=== PATIENT | female | born 1960 | race Caucasian/White ===

== ENCOUNTER 2019-12-05 10:02 | Outpatient (CLI) | payer BC | END 2019-12-05 23:59 | disposition home or self-care (01) | LOC: WOUND 10:02 | PROVIDERS: ATTEND Internal Medicine | DX: I87.331 Chronic venous hypertension (idiopathic) with ulcer and inflammation of right lower extremity (principal); L97.311 Non-pressure chronic ulcer of right ankle limited to breakdown of skin; L97.212 Non-pressure chronic ulcer of right calf with fat layer exposed; Z87.891 Personal history of nicotine dependence; Z88.0 Allergy status to penicillin | CPT/HCPCS: 97597; 97598; 99205 ==

== ENCOUNTER → 2019-12-10 | Outpatient (CLI) | payer BC | END | disposition home or self-care (01) | LOC: WOUND 10:15 | PROVIDERS: ATTEND Internal Medicine | DX: I87.311 Chronic venous hypertension (idiopathic) with ulcer of right lower extremity (principal); L97.212 Non-pressure chronic ulcer of right calf with fat layer exposed; L97.311 Non-pressure chronic ulcer of right ankle limited to breakdown of skin; Z87.891 Personal history of nicotine dependence | CPT/HCPCS: 99214 ==

== ENCOUNTER → 2019-12-21 | Outpatient (CLI) | payer BC | END | disposition home or self-care (01) | LOC: CVU 12:48 | PROVIDERS: ATTEND Internal Medicine | DX: I83.93 Asymptomatic varicose veins of bilateral lower extremities (principal); I82.463 Acute embolism and thrombosis of calf muscular vein, bilateral; L97.311 Non-pressure chronic ulcer of right ankle limited to breakdown of skin | CPT/HCPCS: 93922; 93925; 93970 ==

== ENCOUNTER → 2019-12-24 | Outpatient (CLI) | payer BC | END | disposition home or self-care (01) | LOC: WOUND 09:53 | PROVIDERS: ATTEND Internal Medicine | DX: I87.331 Chronic venous hypertension (idiopathic) with ulcer and inflammation of right lower extremity (principal); L97.311 Non-pressure chronic ulcer of right ankle limited to breakdown of skin; L97.212 Non-pressure chronic ulcer of right calf with fat layer exposed; Z87.891 Personal history of nicotine dependence; Z88.0 Allergy status to penicillin | CPT/HCPCS: 97597; 97598 ==

== ENCOUNTER 2019-12-31 10:44 | Outpatient (CLI) | payer BC | END 2019-12-31 23:59 | disposition home or self-care (01) | LOC: WOUND 10:44 | PROVIDERS: ATTEND Internal Medicine | DX: I87.331 Chronic venous hypertension (idiopathic) with ulcer and inflammation of right lower extremity (principal); L97.311 Non-pressure chronic ulcer of right ankle limited to breakdown of skin; L97.212 Non-pressure chronic ulcer of right calf with fat layer exposed; Z88.0 Allergy status to penicillin; Z87.891 Personal history of nicotine dependence | CPT/HCPCS: 29581; 97597; 97598 ==

== ENCOUNTER → 2020-01-07 | Outpatient (CLI) | payer BC | END | disposition home or self-care (01) | LOC: WOUND 13:00 | PROVIDERS: ATTEND Internal Medicine | DX: I87.331 Chronic venous hypertension (idiopathic) with ulcer and inflammation of right lower extremity (principal); L97.311 Non-pressure chronic ulcer of right ankle limited to breakdown of skin; L97.212 Non-pressure chronic ulcer of right calf with fat layer exposed; Z88.0 Allergy status to penicillin; Z87.891 Personal history of nicotine dependence | CPT/HCPCS: 29581 ==

== ENCOUNTER 2020-01-14 09:50 | Outpatient (CLI) | payer BC | END 2020-01-14 23:59 | disposition home or self-care (01) | LOC: WOUND 09:50 | PROVIDERS: ATTEND Surgery | DX: I87.331 Chronic venous hypertension (idiopathic) with ulcer and inflammation of right lower extremity (principal); L97.311 Non-pressure chronic ulcer of right ankle limited to breakdown of skin; L97.212 Non-pressure chronic ulcer of right calf with fat layer exposed; Z88.0 Allergy status to penicillin; Z87.891 Personal history of nicotine dependence | CPT/HCPCS: 99213 ==

== ENCOUNTER 2020-08-07 12:42 | Day surgery (SDC) | payer BC ==
[~2020-08-07] VITALS: Ht 170.2 cm; Wt 80.0 kg
== END 2020-08-07 15:38 | disposition home or self-care (01) ==
LOC: CACL 12:42
PROVIDERS: ATTEND Internal Medicine Cardiovascular Disease
DX: I83.11 Varicose veins of right lower extremity with inflammation (principal); I83.811 Varicose veins of right lower extremity with pain; Z87.891 Personal history of nicotine dependence; Z88.0 Allergy status to penicillin; Z90.710 Acquired absence of both cervix and uterus
CPT/HCPCS: 36482; C1894

== ENCOUNTER → 2020-08-11 | Outpatient (CLI) | payer BC | END | disposition home or self-care (01) | LOC: CVU 14:17 | PROVIDERS: ATTEND Internal Medicine Cardiovascular Disease | DX: I83.811 Varicose veins of right lower extremity with pain (principal) | CPT/HCPCS: 93971 ==